=== PATIENT | male | born 1975 | race African-American/Black ===

== ENCOUNTER 2018-04-28 10:20 | Inpatient (IN) ==
[2018-04-28] MEDS ORDERED: DILTIAZEM 50 MG/10 ML VIAL IV STA (10:34)
[2018-04-28] MEDS ORDERED: ENOXAPARIN 80 MG/0.8 ML SYRINGE SUBCUT STA (10:41)
[2018-04-28] MEDS ORDERED: ENOXAPARIN 100 MG/ML SYRINGE SUBCUT ONE (11:00)
[2018-04-28 11:02] LABS: Basophils # 0.1 10*3/uL (0.0-0.2); Basophils % 0.5 % (0.0-0.8); Eosinophils # 0.1 10*3/uL (0.0-0.87); Eosinophils % 0.7 % (0.00-10.9); Hematocrit 42.3 VOL% (42.0-52.0); Hemoglobin 14.3 GM/DL (14.0-18.0); Immature Granulocytes % 0.2 %; Immature Granulocytes Absolute 0.02 #; Lymphocytes # 2.8 10*3/uL (1.4-4.0); Lymphocytes % 29.7 % (21.2-54.2); Mean Corpuscular HGB Conc 33.8 GM/DL (32-36); Mean Corpuscular Hemoglobin 29 PG (27-34); Mean Corpuscular Volume 86.9 FL (87-102); Mean Platelet Volume 10.4 FL (9.6-12.0); Monocytes # 0.8 10*3/uL (0.11-0.8); Neutrophils # 5.8 10*3/uL (1.4-7.4); Neutrophils % 60.9 % (38.7-73.9); Platelet Count 374 T/CUMM (130-400); Red Blood Count 4.87 MC/CUMM (3.8-5.5); Red Cell Distribution Width 14.7 % (9.3-17.3); White Blood Count 9.5 T/CUMM (4-12)
[2018-04-28 11:11] LABS: INR 0.9; PT Patient Result 9.8 SECS; Partial Thromboplastin Time 24.2 SECS (0-40)
[2018-04-28] MEDS: DILTIAZEM INJ 100 MG in SODIUM CHLORIDE 0.9% 100 ML IV SCH (11:16)
[2018-04-28 11:49] LABS: Alanine Aminotransferase 32 U/L (16-61); Albumin 3.2 G/DL (3.4-5.0); Alkaline Phosphatase 101 U/L (45-117); Aspartate Amino Transferase 18 U/L (0-37); Bilirubin,Total < 0.39 MG/DL (0.2-1.0); Blood Urea Nitrogen 22 MG/DL (7-18); Calcium 9.1 MG/DL (8.5-10.1); Glucose 109 MG/DL (74-106); Osmolality,Calculated 291.7 MOS/KG (273-304); Sodium 145 MMOL/L (136-145); Thyroid Stimulating Hormone 0.802 uIU/ml (0.358-3.74); Total Protein 7.3 G/DL (6.4-8.3)
[2018-04-28 11:52] LABS: Troponin I Only 0.115 NG/ML (0.00-0.045)
[2018-04-28 13:18] LABS: Apearance,Urine CLEAR (Clear); Bilirubin,Urine Negative (Negative); Blood, Urine Negative (Negative); Glucose,Urine (UA) Negative (Negative); Ketones,Urine Negative (Negative); Mucus,Urine Occasional /LPF (Occasional); Nitrite,Urine Negative (Negative); Protein,Urine Negative; RBC,Urine <1 /HPF (0-4); Urine Color Straw (Yellow); Urine Specific Gravity 1.013 (1.001-1.035); Urine Urobilinogen < 2.0 EU/DL (0.2-1.0); WBC,Urine <1 /HPF (0-6)
[2018-04-28 13:25] LABS: Barbiturates Screen,Urine Negative (Negative); Benzodiazepines Screen,Urine Negative (Negative); Cannabinoid Screen,Urine Negative (Negative); Opiate Screen,Urine Negative (Negative); Phencyclidine Screen,Urine Negative (Negative)
[2018-04-28] MEDS ORDERED: LORazepam 2 MG/1 ML VIAL IV PRN (14:37)
[2018-04-28 15:00] LABS: Alanine Aminotransferase 34 U/L (16-61); Albumin 3.6 G/DL (3.4-5.0); Alkaline Phosphatase 99 U/L (45-117); Aspartate Amino Transferase 20 U/L (0-37); Bilirubin,Direct < 0.100 MG/DL (0.0-0.20); Bilirubin,Indirect 0.3 MG/DL (0.0-1.0); Bilirubin,Total < 0.39 MG/DL (0.2-1.0); Total Protein 7.3 G/DL (6.4-8.3)
[2018-04-28] MEDS ORDERED: HEPARIN 5,000 UNIT/1 ML VIAL SUBCUT SCH (15:00)
[2018-04-28 15:08] LABS: Risk Ratio 4.16; VLDL CHOLESTEROL 37.2 MG/DL
[2018-04-28] MEDS ORDERED: LABETALOL 100 MG/20 ML VIAL IV ONE (15:14)
[2018-04-28] MEDS ORDERED: LABETALOL 20 MG/4 ML SYRINGE IV ONE (15:24)
[2018-04-28 15:28] LABS: Folate 11.9 NG/ML (5.4-24.0)
[2018-04-28] MEDS: SODIUM CHLORIDE 0.9% 1,000 ML IV SCH (16:00)
[2018-04-28 16:26] LABS: Hepatitis A Ab IgM Result Negative (Negative); Hepatitis B Core IgM Quant 0.17 Index; Hepatitis B Core IgM Result Negative (Negative); Hepatitis B Surface Ag Quant < 0.10 Index; Hepatitis B Surface Ag Result Negative (Negative); Hepatitis C Virus Ab Quant 0.09 Index; Hepatitis C Virus Ab Result Negative (Negative)
[2018-04-28] MEDS ORDERED: POTASSIUM CHLORIDE RIDER 10 MEQ in PREMIX 1 EACH IV PRN (16:59)
[2018-04-28] MEDS ORDERED: MAGNESIUM SULF RIDER 4 GM in PREMIX 1 EACH IV PRN (17:00)
[2018-04-28] MEDS: FOLIC ACID 1 MG TABLET PO SCH (17:53)
[2018-04-28] MEDS: NICOTINE 21 MG/24 HR PATCH TRANSDERM SCH (17:53)
[2018-04-28] MEDS ORDERED: LOVASTATIN 20 MG TABLET PO SCH (18:00)
[2018-04-28] MEDS: MAGNESIUM SULF RIDER 2 GM in PREMIX 1 EACH IV PRN (18:04)
[2018-04-28] MEDS: ATORVASTATIN 80 MG TABLET PO SCH (20:47)
[2018-04-28] MEDS ORDERED: ACETAMINOPHEN 325 MG TABLET PO PRN (20:57)
[2018-04-28] MEDS: ALBUTEROL/IPRATROPIUM 3 ML NEB RESP TX SCH (21:12)
[2018-04-28] MEDS: POTASSIUM CHLORIDE 20 MEQ/15 ML UDCUP PER TUBE PRN (21:45)
[2018-04-28] MEDS: ENOXAPARIN 100 MG/ML SYRINGE SUBCUT SCH (21:47)
[2018-04-29] MEDS: POTASSIUM CHLORIDE 20 MEQ/15 ML UDCUP PER TUBE PRN (00:29)
[2018-04-29] MEDS: DILTIAZEM INJ 100 MG in SODIUM CHLORIDE 0.9% 100 ML IV SCH ×2 (01:15→12:43)
[2018-04-29] MEDS: ALBUTEROL/IPRATROPIUM 3 ML NEB RESP TX SCH ×4 (01:31→19:16)
[2018-04-29 04:29] LABS: Basophils # 0.1 10*3/uL (0.0-0.2); Basophils % 0.8 % (0.0-0.8); Eosinophils # 0.2 10*3/uL (0.0-0.87); Eosinophils % 1.8 % (0.00-10.9); Hematocrit 38.8 VOL% (42.0-52.0); Hemoglobin 12.6 GM/DL (14.0-18.0); Immature Granulocytes % 0.4 %; Immature Granulocytes Absolute 0.03 #; Lymphocytes # 3.6 10*3/uL (1.4-4.0); Lymphocytes % 42.2 % (21.2-54.2); Mean Corpuscular HGB Conc 32.5 GM/DL (32-36); Mean Corpuscular Hemoglobin 29 PG (27-34); Mean Corpuscular Volume 90.4 FL (87-102); Monocytes # 0.7 10*3/uL (0.11-0.8); Monocytes % 8.2 % (1.7-12.7); Neutrophils % 46.6 % (38.7-73.9); Platelet Count 339 T/CUMM (130-400); Red Blood Count 4.29 MC/CUMM (3.8-5.5); Red Cell Distribution Width 15.1 % (9.3-17.3); White Blood Count 8.6 T/CUMM (4-12)
[2018-04-29 05:25] LABS: Alanine Aminotransferase 31 U/L (16-61); Albumin 3.3 G/DL (3.4-5.0); Alkaline Phosphatase 79 U/L (45-117); Aspartate Amino Transferase 18 U/L (0-37); Bilirubin,Total < 0.39 MG/DL (0.2-1.0); Blood Urea Nitrogen 22 MG/DL (7-18); Calcium 8.7 MG/DL (8.5-10.1); Glucose 94 MG/DL (74-106); Potassium 3.2 MMOL/L (3.5-5.1); Sodium 143 MMOL/L (136-145); Total Protein 6.2 G/DL (6.4-8.3)
[2018-04-29] MEDS: SODIUM CHLORIDE 0.9% 1,000 ML IV SCH ×2 (05:41→18:37)
[2018-04-29] MEDS: POTASSIUM CHLORIDE 20 MEQ TABLET PO PRN ×2 (05:55→21:34)
[2018-04-29] MEDS ORDERED: diphenhydrAMINE CAP 25 MG CAPSULE PO ONE (06:30)
[2018-04-29] MEDS ORDERED: MAGNESIUM SULF RIDER 2 GM in PREMIX 1 EACH IV PRN (06:30)
[2018-04-29] MEDS ORDERED: POTASSIUM CHLORIDE RIDER 10 MEQ in PREMIX 1 EACH IV PRN (06:30)
[2018-04-29] MEDS ORDERED: DIAZEPAM 5 MG TABLET PO ONE (06:30)
[2018-04-29] MEDS: THIAMINE 100 MG TABLET PO SCH (08:32)
[2018-04-29] MEDS: ENOXAPARIN 100 MG/ML SYRINGE SUBCUT SCH ×2 (08:32→09:41)
[2018-04-29] MEDS: NICOTINE 21 MG/24 HR PATCH TRANSDERM SCH (08:32)
[2018-04-29] MEDS: FOLIC ACID 1 MG TABLET PO SCH (08:32)
[2018-04-29] MEDS: MULTIVITAMIN (CENTRUM) TABLET PO SCH (08:32)
[2018-04-29] MEDS: LOSARTAN 50 MG TABLET PO SCH (08:32)
[2018-04-29] MEDS ORDERED: POTASSIUM CHLORIDE 20 MEQ TABLET PO ONE (08:38)
[2018-04-29 09:54] LABS: Troponin I Only 0.098 NG/ML (0.00-0.045)
[2018-04-29] MEDS ORDERED: LIDOCAINE 1% 20 ML VIAL ONE (12:44)
[2018-04-29] MEDS ORDERED: HYDROmorphone 2 MG/1 ML VIAL ONE (12:47)
[2018-04-29] MEDS ORDERED: MIDAZOLAM 2 MG/2 ML VIAL ONE (12:47)
[2018-04-29] MEDS ORDERED: ASPIRIN CHEW 81 MG TABLET PO ONE (13:05)
[2018-04-29] MEDS: ATORVASTATIN 80 MG TABLET PO SCH (21:34)
[2018-04-30] MEDS: ALBUTEROL/IPRATROPIUM 3 ML NEB RESP TX SCH ×4 (00:27→18:56)
[2018-04-30] MEDS: POTASSIUM CHLORIDE 20 MEQ TABLET PO PRN ×3 (00:27→05:06)
[2018-04-30] MEDS: SODIUM CHLORIDE 0.9% 1,000 ML IV SCH ×2 (02:05→06:18)
[2018-04-30] MEDS: DILTIAZEM INJ 100 MG in SODIUM CHLORIDE 0.9% 100 ML IV SCH (02:57)
[2018-04-30 03:44] LABS: Basophils % 0.5 % (0.0-0.8); Eosinophils # 0.2 10*3/uL (0.0-0.87); Eosinophils % 2.5 % (0.00-10.9); Hematocrit 40.7 VOL% (42.0-52.0); Hemoglobin 13.4 GM/DL (14.0-18.0); Immature Granulocytes % 0.5 %; Immature Granulocytes Absolute 0.04 #; Lymphocytes # 2.3 10*3/uL (1.4-4.0); Lymphocytes % 30.6 % (21.2-54.2); Mean Corpuscular HGB Conc 32.9 GM/DL (32-36); Mean Corpuscular Hemoglobin 29 PG (27-34); Mean Corpuscular Volume 88.1 FL (87-102); Monocytes # 0.7 10*3/uL (0.11-0.8); Monocytes % 8.9 % (1.7-12.7); Neutrophils # 4.3 10*3/uL (1.4-7.4); Platelet Count 338 T/CUMM (130-400); Red Blood Count 4.62 MC/CUMM (3.8-5.5); Red Cell Distribution Width 14.9 % (9.3-17.3); White Blood Count 7.5 T/CUMM (4-12)
[2018-04-30 04:18] LABS: Alanine Aminotransferase 30 U/L (16-61); Albumin 3.2 G/DL (3.4-5.0); Alkaline Phosphatase 92 U/L (45-117); Aspartate Amino Transferase 17 U/L (0-37); Bilirubin,Total < 0.39 MG/DL (0.2-1.0); Blood Urea Nitrogen 13 MG/DL (7-18); Calcium 8.8 MG/DL (8.5-10.1); Glucose 119 MG/DL (74-106); Osmolality,Calculated 281.3 MOS/KG (273-304); Potassium 3.4 MMOL/L (3.5-5.1); Sodium 141 MMOL/L (136-145); Total Protein 6.5 G/DL (6.4-8.3)
[2018-04-30] MEDS: MULTIVITAMIN (CENTRUM) TABLET PO SCH (08:58)
[2018-04-30] MEDS: FOLIC ACID 1 MG TABLET PO SCH (08:58)
[2018-04-30] MEDS: NICOTINE 21 MG/24 HR PATCH TRANSDERM SCH (08:58)
[2018-04-30] MEDS: THIAMINE 100 MG TABLET PO SCH (08:58)
[2018-04-30] MEDS: LOSARTAN 50 MG TABLET PO SCH (09:02)
[2018-04-30] MEDS ORDERED: POTASSIUM CHLORIDE 20 MEQ TABLET PO ONE (10:53)
[2018-04-30] MEDS: METOPROLOL SUCCINATE XL 50 MG TABLET PO SCH (11:19)
[2018-04-30] MEDS: POTASSIUM CHLORIDE 20 MEQ/15 ML UDCUP PER TUBE PRN (13:00)
[2018-04-30] MEDS: ATORVASTATIN 80 MG TABLET PO SCH (20:43)
[2018-04-30] MEDS: PANTOPRAZOLE 40 MG TABLET PO SCH (20:44)
[2018-04-30] MEDS ORDERED: MAGNESIUM HYDROXIDE SUSP 30 ML UDCUP PO SCH (21:00)
[2018-05-01] MEDS: ALBUTEROL/IPRATROPIUM 3 ML NEB RESP TX SCH ×5 (00:26→23:47)
[2018-05-01] MEDS ORDERED: MAGNESIUM HYDROXIDE SUSP 30 ML UDCUP PO PRN (01:00)
[2018-05-01 04:15] LABS: Basophils # 0.1 10*3/uL (0.0-0.2); Basophils % 0.7 % (0.0-0.8); Eosinophils # 0.1 10*3/uL (0.0-0.87); Eosinophils % 1.9 % (0.00-10.9); Hematocrit 42.1 VOL% (42.0-52.0); Hemoglobin 14.2 GM/DL (14.0-18.0); Immature Granulocytes % 0.4 %; Immature Granulocytes Absolute 0.03 #; Lymphocytes # 2.2 10*3/uL (1.4-4.0); Lymphocytes % 30.4 % (21.2-54.2); Mean Corpuscular HGB Conc 33.7 GM/DL (32-36); Mean Corpuscular Hemoglobin 30 PG (27-34); Mean Corpuscular Volume 87.3 FL (87-102); Mean Platelet Volume 11.4 FL (9.6-12.0); Monocytes # 0.6 10*3/uL (0.11-0.8); Monocytes % 7.8 % (1.7-12.7); Neutrophils # 4.3 10*3/uL (1.4-7.4); Neutrophils % 58.8 % (38.7-73.9); Platelet Count 333 T/CUMM (130-400); Red Blood Count 4.82 MC/CUMM (3.8-5.5); Red Cell Distribution Width 14.9 % (9.3-17.3); White Blood Count 7.3 T/CUMM (4-12)
[2018-05-01 04:43] LABS: Albumin 3.4 G/DL (3.4-5.0); Bilirubin,Total 0.4 MG/DL (0.2-1.0); Calcium 8.7 MG/DL (8.5-10.1); Osmolality,Calculated 279.4 MOS/KG (273-304); Potassium 3.5 MMOL/L (3.5-5.1); Total Protein 6.7 G/DL (6.4-8.3)
[2018-05-01] MEDS ORDERED: ALBUTEROL/IPRATROPIUM 3 ML NEB RESP TX ONE (04:45)
[2018-05-01] MEDS ORDERED: MORPHINE 4 MG/1 ML VIAL IV PRN (04:58)
[2018-05-01] MEDS: NITROGLYCERIN SL 0.4 MG TABLET SL PRN ×2 (05:15→05:21)
[2018-05-01 05:27] LABS: Troponin I Only 0.091 NG/ML (0.00-0.045)
[2018-05-01] MEDS: POTASSIUM CHLORIDE 20 MEQ TABLET PO PRN ×3 (06:47→13:33)
[2018-05-01] MEDS: NICOTINE 21 MG/24 HR PATCH TRANSDERM SCH (08:15)
[2018-05-01] MEDS: MAGNESIUM SULF RIDER 2 GM in PREMIX 1 EACH IV PRN (08:15)
[2018-05-01] MEDS: THIAMINE 100 MG TABLET PO SCH (08:16)
[2018-05-01] MEDS: FOLIC ACID 1 MG TABLET PO SCH (08:16)
[2018-05-01] MEDS: PANTOPRAZOLE 40 MG TABLET PO SCH (08:16)
[2018-05-01] MEDS: METOPROLOL SUCCINATE XL 50 MG TABLET PO SCH (08:16)
[2018-05-01] MEDS: MULTIVITAMIN (CENTRUM) TABLET PO SCH (08:16)
[2018-05-01] MEDS: LOSARTAN 50 MG TABLET PO SCH (08:16)
[2018-05-01] MEDS ORDERED: BENZONATATE 100 MG CAPSULE PO PRN (15:34)
[2018-05-01] MEDS ORDERED: guaiFENesin 200 MG/10 ML UDCUP PO PRN (15:35)
[2018-05-01] MEDS: ATORVASTATIN 80 MG TABLET PO SCH (20:43)
[2018-05-01] MEDS: hydrALAZINE 25 MG TABLET PO SCH (20:43)
[2018-05-01] MEDS ORDERED: hydrALAZINE 25 MG TABLET PO SCH (21:00)
[2018-05-02 05:31] LABS: Basophils % 0.5 % (0.0-0.8); Eosinophils # 0.2 10*3/uL (0.0-0.87); Eosinophils % 3.1 % (0.00-10.9); Hematocrit 45.4 VOL% (42.0-52.0); Hemoglobin 14.7 GM/DL (14.0-18.0); Immature Granulocytes % 0.4 %; Immature Granulocytes Absolute 0.03 #; Lymphocytes # 2.2 10*3/uL (1.4-4.0); Lymphocytes % 29.9 % (21.2-54.2); Mean Corpuscular HGB Conc 32.4 GM/DL (32-36); Mean Corpuscular Hemoglobin 29 PG (27-34); Mean Corpuscular Volume 89.5 FL (87-102); Mean Platelet Volume 10.9 FL (9.6-12.0); Monocytes # 0.6 10*3/uL (0.11-0.8); Monocytes % 7.8 % (1.7-12.7); Neutrophils # 4.4 10*3/uL (1.4-7.4); Neutrophils % 58.3 % (38.7-73.9); Platelet Count 318 T/CUMM (130-400); Red Blood Count 5.07 MC/CUMM (3.8-5.5); Red Cell Distribution Width 15.1 % (9.3-17.3); White Blood Count 7.5 T/CUMM (4-12)
[2018-05-02 06:17] LABS: Alanine Aminotransferase 230 U/L (16-61); Albumin 3.3 G/DL (3.4-5.0); Alkaline Phosphatase 113 U/L (45-117); Aspartate Amino Transferase 153 U/L (0-37); Bilirubin,Total < 0.39 MG/DL (0.2-1.0); Blood Urea Nitrogen 12 MG/DL (7-18); Calcium 9.4 MG/DL (8.5-10.1); Glucose 93 MG/DL (74-106); Osmolality,Calculated 274.7 MOS/KG (273-304); Potassium 4.3 MMOL/L (3.5-5.1); Sodium 138 MMOL/L (136-145); Total Protein 7.3 G/DL (6.4-8.3)
[2018-05-02] MEDS: ALBUTEROL/IPRATROPIUM 3 ML NEB RESP TX SCH ×3 (07:22→19:46)
[2018-05-02] MEDS: hydrALAZINE 25 MG TABLET PO SCH ×2 (13:15→21:00)
[2018-05-02] MEDS: THIAMINE 100 MG TABLET PO SCH (13:15)
[2018-05-02] MEDS: CYANOCOBALAMIN 500 MCG TABLET PO SCH (13:15)
[2018-05-02] MEDS: FOLIC ACID 1 MG TABLET PO SCH (13:15)
[2018-05-02] MEDS: PANTOPRAZOLE 40 MG TABLET PO SCH (13:15)
[2018-05-02] MEDS: MULTIVITAMIN (CENTRUM) TABLET PO SCH (13:15)
[2018-05-02] MEDS: NICOTINE 21 MG/24 HR PATCH TRANSDERM SCH (13:16)
[2018-05-02] MEDS: METOPROLOL SUCCINATE XL 50 MG TABLET PO SCH (13:16)
[2018-05-02] MEDS: ATORVASTATIN 80 MG TABLET PO SCH (21:00)
[2018-05-03] MEDS: ALBUTEROL/IPRATROPIUM 3 ML NEB RESP TX SCH ×3 (00:03→13:46)
[2018-05-03 04:10] LABS: Basophils % 0.5 % (0.0-0.8); Eosinophils # 0.2 10*3/uL (0.0-0.87); Eosinophils % 2.2 % (0.00-10.9); Hematocrit 42.5 VOL% (42.0-52.0); Hemoglobin 14.4 GM/DL (14.0-18.0); Immature Granulocytes % 0.4 %; Immature Granulocytes Absolute 0.03 #; Lymphocytes # 2.4 10*3/uL (1.4-4.0); Lymphocytes % 29.3 % (21.2-54.2); Mean Corpuscular HGB Conc 33.9 GM/DL (32-36); Mean Corpuscular Hemoglobin 30 PG (27-34); Mean Corpuscular Volume 87.3 FL (87-102); Monocytes # 0.8 10*3/uL (0.11-0.8); Monocytes % 9.4 % (1.7-12.7); Neutrophils # 4.8 10*3/uL (1.4-7.4); Neutrophils % 58.2 % (38.7-73.9); Platelet Count 321 T/CUMM (130-400); Red Blood Count 4.87 MC/CUMM (3.8-5.5); Red Cell Distribution Width 15.1 % (9.3-17.3); White Blood Count 8.2 T/CUMM (4-12)
[2018-05-03 04:36] LABS: Albumin 3.3 G/DL (3.4-5.0); Bilirubin,Total 0.4 MG/DL (0.2-1.0); Calcium 9.4 MG/DL (8.5-10.1); Osmolality,Calculated 282.4 MOS/KG (273-304); Total Protein 7.2 G/DL (6.4-8.3)
[2018-05-03] MEDS: CYANOCOBALAMIN 500 MCG TABLET PO SCH (09:06)
[2018-05-03] MEDS: hydrALAZINE 25 MG TABLET PO SCH (09:07)
[2018-05-03] MEDS: NICOTINE 21 MG/24 HR PATCH TRANSDERM SCH (09:07)
[2018-05-03] MEDS: PANTOPRAZOLE 40 MG TABLET PO SCH (09:07)
[2018-05-03] MEDS: FOLIC ACID 1 MG TABLET PO SCH (09:07)
[2018-05-03] MEDS: METOPROLOL SUCCINATE XL 50 MG TABLET PO SCH (09:07)
[2018-05-03] MEDS: MULTIVITAMIN (CENTRUM) TABLET PO SCH (09:07)
[2018-05-03] MEDS: THIAMINE 100 MG TABLET PO SCH (09:07)
[2018-05-03 14:06] VITALS: BP 132/88
== END 2018-05-03 16:00 | disposition home or self-care (01) | DRG 287 ==
LOC: N.ED 10:20 → SUATTDRO 14:30 → N.EDINP 14:30 → N.TELES 16:50
PROVIDERS: ADMIT Internal Medicine; ATTEND Hospitalist
PROC: CLCCHCL (ICD-10-PCS; 2018-04-29 13:15)